=== PATIENT | male | born 1960 | race Caucasian/White ===

== ENCOUNTER 2018-05-11 10:53 | Emergency (ER) | payer MEDICARE, BC ==
[~2018-05-11] VITALS: Ht 172.7 cm; Wt 81.6 kg
--- NOTE | 2018-05-11 11:21 | PHYS DOC ---
Past History Past Medical History: Diabetes, High Cholesterol Past Surgical History: No Surgical History Additional Smoking Information: 1/2 PACK/DAY Alcohol Use: Occasionally Drug Use: None Adult General Chief Complaint Chief Complaint: DENTAL PROBLEM HPI HPI 58-year-old male presents with right lower dental pain and possible abscess. The patient was seen by his dentist and placed on clindamycin 150 mg 3 times a day, but definitive treatment of the infected tooth could not be scheduled until Sunday which is 3 days from now. 2 days ago, the patient developed a fever. He has been going to his PCP for 3 days to get IM Rocephin. He went today for his fourth visit and his provider was concerned about the swelling on the right side and the possibility of drainable abscess. The patient had a fever for 2 days despite the Rocephin and this was also concerning. The patient' s last measured fever was yesterday afternoon. He does not have a fever here. Patient tells me that the swelling seems to be decreasing at this time compared to yesterday. He also has less pain and sensitivity they came to the ED on the advice of his PCP. Review of Systems Review of Systems Constitutional: Denies fever or chills [] Eyes: Denies change in visual acuity, redness, or eye pain [] HENT: Denies nasal congestion or sore throat. Tooth pain, facial swelling.[] Respiratory: Denies cough or shortness of breath [] Cardiovascular: No additional information not addressed in HPI [] GI: Denies abdominal pain, nausea, vomiting, bloody stools or diarrhea [] : Denies dysuria or hematuria [] Musculoskeletal: Denies back pain or joint pain [] Integument: Denies rash or skin lesions [] Neurologic: Denies headache, focal weakness or sensory changes [] Endocrine: Denies polyuria or polydipsia [] All other systems were reviewed and found to be within normal limits, except as documented in this note. Allergies Allergies Allergies Coded Allergies Type Severity Reaction Last Updated Verified No Known Drug Allergies 05/11/18 No Physical Exam Physical Exam Constitutional: Well developed, well nourished, no acute distress, non-toxic appearance. [] HENT: Normocephalic, atraumatic, bilateral external ears normal. Cracked filling in tooth #31. No obvious drainable abscess in the gums.[] Eyes: PERRLA, EOMI, conjunctiva normal, no discharge. [] Neck: Normal range of motion, no tenderness, supple, no stridor. Prominent submandibular lymph nodes on the right [] Cardiovascular:Heart rate regular rhythm, no murmur [] Lungs & Thorax: Bilateral breath sounds clear to auscultation [] Abdomen: Bowel sounds normal, soft, no tenderness, no masses, no pulsatile masses. [] Skin: Warm, dry, no erythema, no rash. [] Back: No tenderness, no CVA tenderness. [] Extremities: No tenderness, no cyanosis, no clubbing, ROM intact, no edema. [] Neurologic: Alert and oriented X 3, normal motor function, normal sensory function, no focal deficits noted. [] Psychologic: Affect normal, judgement normal, mood normal. [] Current Patient Data Vital Signs Vital Signs Date Time Temp Pulse Resp B/P (MAP) Pulse Ox O2 Delivery O2 Flow Rate FiO2 05/11/18 10:55 98.2 88 20 98 Room Air EKG EKG [] Radiology/Procedures Radiology/Procedures [] Impressions: PQRS Compliance statement: One or more of the following individualized dose reduction techniques were utilized for this examination: 1. Automated exposure control. 2. Adjustment of the mA and/or kV according to patient size. 3. Use of iterative reconstruction technique. Indication:HEADACHE/FACIAL PAIN, RIGHT LOWER JAW X 5 DAYS TECHNIQUE: CT head without IV contrast COMPARISON:None FINDINGS: No pathologic extra-axial or intra-axial fluid collection. The ventricles and basal cisterns are within normal limits. No acute intracranial bleed. No focal loss of parikh-white differentiation. No scalp hematoma. Orbits are within normal limits. No suspicious calvarial lesion. The mastoid air cells are clear. IMPRESSION: No acute intracranial process. Indication:HEADACHE/FACIAL PAIN, RIGHT LOWER JAW X 5 DAYS TECHNIQUE: CT of the maxillofacial bones without IV contrast multiplanar reformats. COMPARISON: None FINDINGS: There is rightward deviation of the nasal septum. The bilateral zygoma and zygomatic arches are within normal limits. The paranasal sinuses and mastoid air cells are clear. The bilateral external auditory canals and inner ear cavities are within normal limits. The bilateral temporomandibular joints and mandible are within normal limits. Visualized upper cervical spine is within normal limits with facet arthropathy at C4-C5. The lenses, globes, extraocular muscles and intraorbital fat within normal limits. Right perimandibular inflammation and edema is noted with superficial right facial soft tissue swelling. No right perimandibular fluid collection seen. The visualized noncontrast appearance of the nasopharynx and oropharynx is within normal limits. IMPRESSION: 1. Right perimandibular and facial soft tissue cellulitis. No apparent fluid collection suggest abscess. Likely etiology right mandibular tooth infection. Electronically signed by: Gonzalo Adrian DO (05/11/2018 12:00 PM) [facility] DICTATED AND SIGNED BY: GONZALO ADRIAN DO DATE: 05/11/18 [id number] CC: SHANTI REYNOLDS DO Course & Med Decision Making Course & Med Decision Making Pertinent Labs and Imaging studies reviewed. (See chart for details) The patient is afebrile at this time. It is possible that the antibiotics are catching up with the infection. I will do a CT of the maxillofacial structures to evaluate for abscess. The CT scan does not show an abscess, though cellulitis is visualized. I believe the patient has turned the corner and this infection. I will increase his clindamycin dose to 300 mg 3 times a day and he will see his dentist in 3 days. If his fever returns he will come back to the emergency room to be admitted to the hospital for IV antibiotics. Is in agreement with this plan. He is stable for discharge at this time. I will give the patient 300 mg of clindamycin in the ED. [] Dragon Disclaimer Dragon Disclaimer This electronic medical record was generated, in whole or in part, using a voice recognition dictation system. Departure Departure: Impression: Primary Impression: Dental infection Disposition: HOME, SELF-CARE Condition: STABLE Patient Instructions: Dental Abscess SHANTI REYNOLDS DO May 11, 2018 11:21
[2018-05-11 11:36] LABS: BASO % 1 % (0-3); EOS # 0.1 x10^3/uL (0.0-0.7); EOS % 2 % (0-3); HEMATOCRIT 41.6 % (39.0-53.0); HEMOGLOBIN 14.4 g/dL (13.0-17.5); LYMPH # 1.7 x10^3/uL (1.0-4.8); LYMPH % 32 % (24-48); MEAN CORPUSCULAR HEMOGLOBIN 34 pg (25-35); MEAN CORPUSCULAR HGB CONC 35 g/dL (31-37); MEAN CORPUSCULAR VOLUME 99 fL (79-100); MONO # 0.5 x10^3/uL (0.0-1.1); MONO % 9 % (0-9); NEUT # 3.1 x10^3uL (1.8-7.7); NEUT % 57 % (31-73); PLATELET COUNT 179 x10^3/uL (140-400); RED BLOOD COUNT 4.22 x10^6/uL (4.30-5.70); RED CELL DISTRIBUTION WIDTH 14.5 % (11.5-14.5); WHITE BLOOD COUNT 5.4 x10^3/uL (4.0-11.0)
--- NOTE | 2018-05-11 12:03 | RAD ---
PQRS Compliance statement: One or more of the following individualized dose reduction techniques were utilized for this examination: 1. Automated exposure control. 2. Adjustment of the mA and/or kV according to patient size. 3. Use of iterative reconstruction technique. Indication:HEADACHE/FACIAL PAIN, RIGHT LOWER JAW X 5 DAYS TECHNIQUE: CT head without IV contrast COMPARISON:None FINDINGS: No pathologic extra-axial or intra-axial fluid collection. The ventricles and basal cisterns are within normal limits. No acute intracranial bleed. No focal loss of parikh-white differentiation. No scalp hematoma. Orbits are within normal limits. No suspicious calvarial lesion. The mastoid air cells are clear. IMPRESSION: No acute intracranial process. Indication:HEADACHE/FACIAL PAIN, RIGHT LOWER JAW X 5 DAYS TECHNIQUE: CT of the maxillofacial bones without IV contrast multiplanar reformats. COMPARISON: None FINDINGS: There is rightward deviation of the nasal septum. The bilateral zygoma and zygomatic arches are within normal limits. The paranasal sinuses and mastoid air cells are clear. The bilateral external auditory canals and inner ear cavities are within normal limits. The bilateral temporomandibular joints and mandible are within normal limits. Visualized upper cervical spine is within normal limits with facet arthropathy at C4-C5. The lenses, globes, extraocular muscles and intraorbital fat within normal limits. Right perimandibular inflammation and edema is noted with superficial right facial soft tissue swelling. No right perimandibular fluid collection seen. The visualized noncontrast appearance of the nasopharynx and oropharynx is within normal limits. IMPRESSION: 1. Right perimandibular and facial soft tissue cellulitis. No apparent fluid collection suggest abscess. Likely etiology right mandibular tooth infection. Electronically signed by: Gonzalo Sellers DO (05/11/2018 12:00 PM) [facility]
[2018-05-11 12:38] LABS: ALBUMIN 2.5 g/dL (3.4-5.0); ALBUMIN/GLOBULIN RATIO 0.5 (1.0-1.7); CALCIUM 8.7 mg/dL (8.5-10.1); CREATININE 1.1 mg/dL (0.7-1.3); POTASSIUM 4.2 mmol/L (3.5-5.1); TOTAL BILIRUBIN 0.3 mg/dL (0.2-1.0); TOTAL PROTEIN 7.5 g/dL (6.4-8.2)
[2018-05-11 12:40] VITALS: BP 128/85
[2018-05-11] MEDS ORDERED: CLINDAMYCIN HCL 150 MG CAPSULE PO ONE (12:45)
== END 2018-05-11 12:40 | disposition home or self-care (01) ==
LOC: ER 10:53
DX: K04.7 Periapical abscess without sinus (principal); R51 Headache; F17.200 Nicotine dependence, unspecified, uncomplicated; K12.2 Cellulitis and abscess of mouth; E11.9 Type 2 diabetes mellitus without complications; E78.00 Pure hypercholesterolemia, unspecified
CPT/HCPCS: 36415; 70450; 70486; 80053; 85025; 99284-25

== ENCOUNTER 2018-05-17 18:39 | Inpatient (IN) | payer MEDICARE, BC ==
[~2018-05-17] VITALS: Ht 172.7 cm; Wt 80.7 kg
[2018-05-17 19:05] VITALS: BP 135/80
[2018-05-17] MEDS ORDERED: PRAV40TA2 PO (19:33)
[2018-05-17] MEDS ORDERED: METF500T16 PO (19:33)
[2018-05-17] MEDS ORDERED: CEPH500C PO (19:33)
[2018-05-17] MEDS ORDERED: HYDR-2765 PO (19:33)
[2018-05-17 19:54] LABS: BASO # 0.1 x10^3/uL (0.0-0.2); BASO % 1 % (0-3); EOS # 0.1 x10^3/uL (0.0-0.7); EOS % 1 % (0-3); HEMATOCRIT 39.1 % (39.0-53.0); HEMOGLOBIN 13.9 g/dL (13.0-17.5); LYMPH % 21 % (24-48); MEAN CORPUSCULAR HEMOGLOBIN 35 pg (25-35); MEAN CORPUSCULAR HGB CONC 35 g/dL (31-37); MEAN CORPUSCULAR VOLUME 98 fL (79-100); MONO # 0.6 x10^3/uL (0.0-1.1); MONO % 7 % (0-9); NEUT # 6.7 x10^3uL (1.8-7.7); NEUT % 71 % (31-73); PLATELET COUNT 203 x10^3/uL (140-400); RED BLOOD COUNT 4.01 x10^6/uL (4.30-5.70); RED CELL DISTRIBUTION WIDTH 14.5 % (11.5-14.5); WHITE BLOOD COUNT 9.5 x10^3/uL (4.0-11.0)
[2018-05-17] MEDS ORDERED: VANCOMYCIN 2 GM in IV NORMAL SALINE 500ML 500 ML IV ONE (20:00)
[2018-05-17 20:09] LABS: CALCIUM 8.7 mg/dL (8.5-10.1); POTASSIUM 3.9 mmol/L (3.5-5.1)
[2018-05-17 20:59] LABS: SEDIMENTATION RATE 115 (0-15)
[2018-05-17] MEDS: PRAVASTATIN 20 MG TABLET. PO SCH (21:00)
[2018-05-17] MEDS: HYDROmorphone PF 2 MG/ML VIAL IV PRN (21:10)
[2018-05-17] MEDS: VANCOMYCIN PER PHARMACY MC PRN (21:40)
[2018-05-17 23:40] VITALS: BP 143/68
[2018-05-18] MEDS: HYDROmorphone PF 2 MG/ML VIAL IV PRN ×7 (06:26→23:38)
[2018-05-18 06:42] VITALS: BP 108/70
[2018-05-18] MEDS: LACTOBACILLUS RHAMNOSUS GG 1 CAPSULE. PO SCH ×2 (09:00→21:08)
[2018-05-18] MEDS: VANCOMYCIN 1.25 GM in IV NORMAL SALINE 250ML 250 ML IV SCH ×2 (09:45→21:12)
[2018-05-18 11:12] VITALS: BP 114/53
[2018-05-18] MEDS: CLINDAMYCIN 600MG PREMIX 50 ML IV SCH ×2 (14:20→22:23)
[2018-05-18] MEDS ORDERED: ONDANSETRON PF 4 MG/2 ML VIAL. IV PRN (15:00)
[2018-05-18 15:29] VITALS: BP 135/73
[2018-05-18 20:05] VITALS: BP 146/68
[2018-05-18] MEDS: PRAVASTATIN 20 MG TABLET. PO SCH (21:08)
[2018-05-18 22:10] VITALS: BP 120/77
[2018-05-18] MEDS: ACETAMINOPHEN 325 MG TABLET PO PRN (22:22)
--- NOTE | 2018-05-18 23:49 | PN ---
DATE: SUBJECTIVE: A 58-year-old male seen yesterday in the office and admitted. He has osteomyelitis of his right jaw, abscess formation, although he is markedly improved. Sed rate was 115. The patient's glucose slightly elevated at 116. The patient continues to make good progress. We will try to put a PICC line on him. OBJECTIVE: VITAL SIGNS: Did spike a temperature up to 100.1 with pulse of approximately 90. Blood pressure 135/73. GENERAL: The patient is alert and oriented. Swelling has gone down slightly to the right jaw area. NECK: Otherwise supple. LUNGS: Diminished, but clear. CARDIOVASCULAR: Regular sinus rhythm, S1, S2. ABDOMEN: Soft, nontender. ASSESSMENT AND PLAN: The patient is continued on IV antibiotic therapy. Outpatient MRI shows osteomyelitis of the right mandible and cellulitis and abscess formation as noted. NICKI DUQUE MD DR: BRANDIE/conor JOB#: [id number] / [id number]
[2018-05-19] MEDS: HYDROmorphone PF 2 MG/ML VIAL IV PRN ×9 (03:17→23:38)
[2018-05-19 05:36] VITALS: BP 156/77
[2018-05-19] MEDS: CLINDAMYCIN 600MG PREMIX 50 ML IV SCH (05:44)
--- NOTE | 2018-05-19 08:04 | RAD ---
Chest, PA and Lateral: Technique: PA and lateral views of the chest were obtained. History: Shortness of breath. Comparison: None. Findings: The heart and pulmonary vasculature appear within normal limits. Right-sided PICC line identified with the tip projecting at SVC/RA junction. Mild bibasilar lung airspace opacities likely atelectasis or infiltrates. Mild degenerative changes thoracic spine.. The pleural margins are clear. Impression: Mild bibasilar lung airspace opacities likely atelectasis or infiltrates.. Electronically signed by: Bladimir Rizo MD (05/19/2018 8:01 AM) [facility]
[2018-05-19] MEDS: LACTOBACILLUS RHAMNOSUS GG 1 CAPSULE. PO SCH ×2 (09:00→20:56)
[2018-05-19 09:08] LABS: VANC TR 7.7 mcg/mL (10.0-20.0)
[2018-05-19] MEDS: VANCOMYCIN 1.25 GM in IV NORMAL SALINE 250ML 250 ML IV SCH ×2 (09:19→17:03)
[2018-05-19] MEDS: VANCOMYCIN PER PHARMACY MC PRN (10:06)
[2018-05-19 10:53] VITALS: BP 149/77
[2018-05-19 12:13] LABS: BASO % 1 % (0-3); EOS % 0 % (0-3); HEMATOCRIT 33.3 % (39.0-53.0); HEMOGLOBIN 11.4 g/dL (13.0-17.5); LYMPH # 1.3 x10^3/uL (1.0-4.8); LYMPH % 18 % (24-48); MEAN CORPUSCULAR HEMOGLOBIN 34 pg (25-35); MEAN CORPUSCULAR HGB CONC 34 g/dL (31-37); MEAN CORPUSCULAR VOLUME 98 fL (79-100); MONO # 0.4 x10^3/uL (0.0-1.1); MONO % 6 % (0-9); NEUT # 5.7 x10^3uL (1.8-7.7); NEUT % 76 % (31-73); PLATELET COUNT 156 x10^3/uL (140-400); RED BLOOD COUNT 3.39 x10^6/uL (4.30-5.70); RED CELL DISTRIBUTION WIDTH 14.3 % (11.5-14.5); WHITE BLOOD COUNT 7.5 x10^3/uL (4.0-11.0)
[2018-05-19 12:24] LABS: CALCIUM 8.1 mg/dL (8.5-10.1); POTASSIUM 4.3 mmol/L (3.5-5.1)
[2018-05-19] MEDS ORDERED: IOHEXOL 300 MG/ML 75 ML VIAL. IV ONE (12:30)
[2018-05-19] MEDS ORDERED: CONTRAST GIVEN MC PRN (12:30)
[2018-05-19] MEDS: PIPERACILLIN/TAZOBACTAM 4.5 GM in IV NORMAL SALINE 50ML 50 ML IV SCH ×3 (13:25→23:41)
[2018-05-19 15:57] VITALS: BP 139/68
--- NOTE | 2018-05-19 16:18 | RAD ---
Examination: CT head without contrast and CT maxillofacial bones with IV contrast HISTORY: History of right-sided facial, jaw swelling, fever, chills COMPARISON: 05/11/2018 TECHNIQUE: Axial CT images of the head was performed without contrast. Axial CT images of the maxillofacial bones were performed with IV contrast. Exposure: One or more of the following individualized dose reduction techniques were utilized for this examination: 1. Automated exposure control 2. Adjustment of the mA and/or kV according to patient size 3. Use of iterative reconstruction technique FINDINGS: There is no evidence of midline shift. There is no acute intracranial bleed or extra-axial fluid collection identified. The parikh-white matter differentiation is maintained. The visualized lateral ventricles, third ventricle, fourth ventricle appropriate for age. The basal cisterns are uneffaced. There is a peripherally enhancing 4.9 x 4.0 x 2.3 cm fluid collection identified about the right mandible (superficial and deep to the right mandible) with surrounding inflammatory fat stranding and soft tissue swelling likely abscess, best visualized on series 6 image #10. No evidence of cortical disruption identified. There are periapical lucencies identified in the mandibular teeth region likely dental disease. The visualized vallecula, piriform sinuses grossly appears unremarkable. IMPRESSION: 1. Peripherally enhancing 4.9 x 4.0 x 2.3 cm fluid collection identified about the right mandible (superficial and deep to the right mandible into the floor of the mouth ) with surrounding inflammatory fat stranding and soft tissue swelling likely abscess, best visualized on series 6 image #10. There is surrounding inflammatory fat stranding about the mandible in the soft tissue in the subcutaneous region likely soft tissue infection. 2. No acute intracranial findings. Electronically signed by: Bladimir Rizo MD (05/19/2018 4:15 PM) [facility]
[2018-05-19 19:37] VITALS: BP 154/78
[2018-05-19] MEDS: PRAVASTATIN 20 MG TABLET. PO SCH (20:56)
[2018-05-19] MEDS: ACETAMINOPHEN 325 MG TABLET PO PRN (21:10)
[2018-05-19 23:26] VITALS: BP 129/69
--- NOTE | 2018-05-19 23:28 | PN ---
DATE: SUBJECTIVE: A 58-year-old male. He is in with severe cellulitis and osteomyelitis of his right jaw. The patient has been doing reasonably well. He still spiked a temperature of 100.7, switched him over to Zosyn and vancomycin and make further evaluation there. He is in quite a bit of pain. He is still receiving IV hydromorphone every 2 hours or so for pain. We asked oral surgeon to come in and take a look at him. Otherwise, we will get a repeat CT scan of his face to make sure the ____ has not progressed as there does appear to be more swelling than previous. OBJECTIVE: VITAL SIGNS: Blood pressure 149/77, respiration 18, pulse 86, temperature 100.7, and oxygen saturation is good. EXTREMITIES: The patient has marked swelling along the right side of his face extending up into the pretemporal area, but not around the eye itself. He is able to eat somewhat on a soft diet, but other than that seems to be having some difficulty with the pain of this abscess. We will continue with IV antibiotic therapy including vancomycin and Zosyn and make further evaluation along with Oral Surgery to see if there is anything that needs to be acutely drained or taking care on this young man. IMPRESSION: Osteomyelitis of the right jaw, abscess of the face secondary to a tooth abscess, systemic inflammatory response syndrome. PLAN: As above. NICKI DUQUE MD DR: BRANDIE/conor JOB#: [id number] / [id number]
[2018-05-20] MEDS: VANCOMYCIN 1.25 GM in IV NORMAL SALINE 250ML 250 ML IV SCH ×2 (01:17→10:51)
[2018-05-20] MEDS: HYDROmorphone PF 2 MG/ML VIAL IV PRN ×5 (01:41→12:44)
[2018-05-20] MEDS: PIPERACILLIN/TAZOBACTAM 4.5 GM in IV NORMAL SALINE 50ML 50 ML IV SCH ×2 (05:52→12:44)
[2018-05-20 06:02] VITALS: BP 129/66
[2018-05-20] MEDS: ACETAMINOPHEN 325 MG TABLET PO PRN (06:07)
[2018-05-20] MEDS: LACTOBACILLUS RHAMNOSUS GG 1 CAPSULE. PO SCH (08:29)
[2018-05-20 09:19] LABS: BASO % 1 % (0-3); EOS % 0 % (0-3); HEMATOCRIT 32.1 % (39.0-53.0); HEMOGLOBIN 11.2 g/dL (13.0-17.5); LYMPH # 1.1 x10^3/uL (1.0-4.8); LYMPH % 13 % (24-48); MEAN CORPUSCULAR HEMOGLOBIN 34 pg (25-35); MEAN CORPUSCULAR HGB CONC 35 g/dL (31-37); MEAN CORPUSCULAR VOLUME 97 fL (79-100); MONO # 0.5 x10^3/uL (0.0-1.1); MONO % 7 % (0-9); NEUT # 6.7 x10^3uL (1.8-7.7); NEUT % 80 % (31-73); PLATELET COUNT 149 x10^3/uL (140-400); RED CELL DISTRIBUTION WIDTH 14.5 % (11.5-14.5); WHITE BLOOD COUNT 8.4 x10^3/uL (4.0-11.0)
[2018-05-20] MEDS: VANCOMYCIN PER PHARMACY MC PRN (10:06)
[2018-05-20 10:47] VITALS: BP 122/63
--- NOTE | 2018-05-20 13:44 | PDOC2 ---
CONSULT Date of Admission DATE: 05/17/18 TIME: 17:00 Reason for Consult: Odontogenic Abscess right face associated with nonvital tooth #30 Referring Physician: David Chief Complaint Right face and neck abscess Pt reports acute pain with right molar #30, and root canal treatment with continued swelling and pain Source: Chart review, Patient Problem List Odontogenic abscess Right neck, Submandibular space, microbiology supervisor space, right floor of mouth Non vital tooth #30 History of Present Illness 58 yom reports that 1-2 weeks ago he had acute dental pain, sought help with the [facility], he was treated with PO ABX and a root canal on #30. He reports that the swelling increased and that he then sought help from his PCP , Dr. Hernandez who administered IM ABX and admitted him at [facility] for IV ABX. OMS was consulted for evaluation and management of odontogenic abscess Cardiovascular: CAD Pulmonary: No pertinent hx GI: No pertinent hx Heme/Onc: No pertinent hx Hepatobiliary: No pertinent hx Psych: No pertinent hx Musculoskeletal: Other (neck pain managed with Narcotics) Rheumatologic: No pertinent hx Infectious disease: No pertinent hx ENT: Other (hx of neck pain) Renal/: No pertinent hx Endocrine: No pertinent hx Dermatology: No pertinent hx Past Surgical History: No pertinent history Family History: Coronary Artery Disease, Diabetes Smoke: No ALCOHOL: occassional Drugs: None Lives: with Family Domestic Violence: Neg Current Medications Current Medications Vancomycin HCl (Vanco Per Pharmacy) 1 each PRN DAILY PRN MC SEE COMMENTS Last administered on 05/20/18at 10:06; Start 05/17/18 at 19:45 Hydromorphone HCl (Dilaudid) 2 mg PRN Q2HR PRN IV PAIN Last administered on 05/20at 12:44; Start 05/17/18 at 19:45 Vancomycin HCl 2 gm/Sodium Chloride 500 ml @ 250 mls/hr 1X ONCE IV Last administered on 05/17/18at 21:10; Start 05/17/18 at 20:00; Stop 05/17/18 at 21:59; Status DC Pravastatin Sodium (Pravachol) 40 mg QHS PO Last administered on 05/19/18at 20:56 ; Start 05/17/18 at 21:00 Vancomycin HCl 1.25 gm/Sodium Chloride 250 ml @ 167 mls/hr Q12H IV Last administered on 05/19/18 09:19; Start 05/18/18 at 09:00; Stop 05/19/18 at 11:01; Status DC Vancomycin HCl (Vancomycin Trough Level) 1 each 1X ONCE MC Last administered on 05/19/18 08:30; Start 05/19/18 at 08:30; Stop 05/19/18 at 08:31; Status DC Lactobacillus Rhamnosus (Culturelle) 1 cap BID PO Last administered on 08:29; Start 05/18/18 at 09:00 Clindamycin Phosphate 50 ml @ 100 mls/hr Q8HRS IV Last administered on 05:44; Start 05/18/18 at 14:00; Stop 05/19/18 at 11:39; Status DC Ondansetron HCl (Zofran) 4 mg PRN Q6HRS PRN IV NAUSEA/VOMITING Last administered on 05/18/18 15:07; Start 05/18/18 at 15:00 Acetaminophen (Tylenol) 650 mg PRN Q6HRS PRN PO PAIN / TEMP Last administered on 05/20/18 06:07; Start 05/18/18 at 21:45 Vancomycin HCl 1.25 gm/Sodium Chloride 250 ml @ 167 mls/hr Q8H IV Last administered on 05/20/18 10:51; Start 05/19/18 at 17:00 Vancomycin HCl (Vancomycin Trough Level) 1 each 1X ONCE MC Last administered on 05/20/18 08:30; Start 05/20/18 at 08:30; Stop 05/20/18 at 08:31; Status DC Piperacillin Sod/ Tazobactam Sod 4.5 gm/Sodium Chloride 50 ml @ 100 mls/hr Q6HRS IV Last administered on 05/20/18 12:44; Start 05/19/18 at 12:00 Iohexol (Omnipaque 300 Mg/ml) 75 ml 1X ONCE IV Last administered on 05/19/18 12:30; Start 05/19/18 at 12:30; Stop 05/19/18 at 12:31; Status DC Info (Do NOT chart on this entry -- for MONITORING) 1 each PRN DAILY PRN MC SEE COMMENTS; Start 05/19/18 at 12:30; Stop 05/21/18 at 12:29 Vancomycin HCl (Vancomycin Trough Level) 1 each 1X ONCE MC ; Start 05/23/18 at 08:30; Stop 05/23/18 at 08:31 Active Scripts Active Reported Pravastatin Sodium 40 Mg Tablet 40 Mg PO HS Hydrocodone-Apap 7.5-325 (Hydrocodone Bit/Acetaminophen) 1 Each Tablet 1-2 Tab PO PRN Q6HRS PRN Metformin Hcl 500 Mg Tablet 500 Mg PO BID Cephalexin 500 Mg Capsule 500 Mg PO QID Allergies: Coded Allergies: No Known Drug Allergies (Unverified , 05/11/18) General: Alert, Oriented X3, Cooperative, No acute distress HEENT: Atraumatic, PERRLA, EOMI, Mucous membr. moist/pink (FROM tongue, uvula at midline, #30 has RCT access, slight inflammation on right floor of mouth,), Other (right facial edema extending below the inferior mandibular border, but not past midline. Indurated 8x8cm, into vestibule.) Lungs: Clear to auscultation Heart: Regular rate Abdomen: Normal bowel sounds, Soft Extremities: No clubbing, No cyanosis Skin: No rashes Neuro: Normal speech, Strength at 5/5 X4 ext, Normal tone, Sensation intact, Cranial nerves 3-12 NL VITALS Vital Signs Date Time Temp Pulse Resp B/P (MAP) Pulse Ox O2 Delivery O2 Flow Rate FiO2 05/20/18 12:44 95 Room Air 05/20/18 10:47 99.4 77 20 122/63 (82) Labs Laboratory Tests Test 05/19/18 08:03 05/19/18 08:41 05/19/18 12:04 05/20/18 09:05 Glucose (Fingerstick) 86 mg/dL (70-99) Vancomycin Level Trough 7.7 mcg/mL (10.0-20.0) 13.0 mcg/mL (10.0-20.0) Vancomycin Last Dose Date 05/18/2018 05/20/2018 Vancomycin Last Dose Time 2100 0100 White Blood Count 7.5 x10^3/uL (4.0-11.0) 8.4 x10^3/uL (4.0-11.0) Red Blood Count 3.39 x10^6/uL (4.30-5.70) 3.30 x10^6/uL (4.30-5.70) Hemoglobin 11.4 g/dL (13.0-17.5) 11.2 g/dL (13.0-17.5) Hematocrit 33.3 % (39.0-53.0) 32.1 % (39.0-53.0) Mean Corpuscular Volume 98 fL (79-100) 97 fL (79-100) Mean Corpuscular Hemoglobin 34 pg (25-35) 34 pg (25-35) Mean Corpuscular Hemoglobin Concent 34 g/dL (31-37) 35 g/dL (31-37) Red Cell Distribution Width 14.3 % (11.5-14.5) 14.5 % (11.5-14.5) Platelet Count 156 x10^3/uL (140-400) 149 x10^3/uL (140-400) Neutrophils (%) (Auto) 76 % (31-73) 80 % (31-73) Lymphocytes (%) (Auto) 18 % (24-48) 13 % (24-48) Monocytes (%) (Auto) 6 % (0-9) 7 % (0-9) Eosinophils (%) (Auto) 0 % (0-3) 0 % (0-3) Basophils (%) (Auto) 1 % (0-3) 1 % (0-3) Neutrophils # (Auto) 5.7 x10^3uL (1.8-7.7) 6.7 x10^3uL (1.8-7.7) Lymphocytes # (Auto) 1.3 x10^3/uL (1.0-4.8) 1.1 x10^3/uL (1.0-4.8) Monocytes # (Auto) 0.4 x10^3/uL (0.0-1.1) 0.5 x10^3/uL (0.0-1.1) Eosinophils # (Auto) 0.0 x10^3/uL (0.0-0.7) 0.0 x10^3/uL (0.0-0.7) Basophils # (Auto) 0.0 x10^3/uL (0.0-0.2) 0.0 x10^3/uL (0.0-0.2) Sodium Level 131 mmol/L (136-145) Potassium Level 4.3 mmol/L (3.5-5.1) Chloride Level 97 mmol/L (98-107) Carbon Dioxide Level 30 mmol/L (21-32) Anion Gap 4 (6-14) Blood Urea Nitrogen 15 mg/dL (8-26) Creatinine 1.0 mg/dL (0.7-1.3) Estimated GFR (Cockcroft-Gault) 77.0 Glucose Level 130 mg/dL (70-99) Lactic Acid Level 0.7 mmol/L (0.4-2.0) Calcium Level 8.1 mg/dL (8.5-10.1) Images right neck fluid collection [id number] Periapical radiolucencies at the apicies of #30 Assessment/Plan 58 yom with right facial Odontogenic abscess Right neck, Submandibular space, microbiology supervisor space, right floor of mouth Non vital tooth #30 Plan: Continue IV ABX through discharge, please continue Zosyn. OK to D/C Vanc and switch to Flagyl 500mg TID Request transfer from Dr. Hernandez to [facility] to access OR for I&D Plan OR Surgical percutaneous drainage, placement of neck drains and extraction of #30 and biopsy bone and culture purulence on 05.21.18, plan approximately 16:30 Will follow Please call with questions CARD,CHANNING Ortiz DMD May 20, 2018 13:44
[2018-05-20 14:57] VITALS: BP 146/67
--- NOTE | 2018-05-20 15:24 | PN ---
DATE: SUBJECTIVE: The patient has a large abscess. 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 We have consulted an oral surgeon, Dr. Russo to come up and probably drain this abscess. He has been on Zosyn and vancomycin. OBJECTIVE: VITAL SIGNS: His temperature is up to 101.8, pulse of 88, otherwise blood pressure 130/60, afebrile, sat 94%. EXTREMITIES: The patient is fair amount of pain, using Dilaudid IV for pain relief. LABORATORY DATA: Blood cultures have been negative so far. Otherwise, the patient has amount of pain. The swelling to the right side of the face has increased. His CAT scan of that area demonstrates swelling, 4.9 fluid collection in the right mandible with surrounding inflammatory fat stranding about the mandible and soft tissue of the subcutaneous region likely soft tissue infection. We will continue on IV antibiotic therapy, get Dr. Russo to drain that abscesses as soon as possible and make further evaluation. IMPRESSION: Sukhwinder's angina, osteomyelitis of the right mandible, dental decay, sepsis. PLAN: As above. Continue with IV antibiotic therapy and surgical intervention. NICKI DUQUE MD DR: BRANDIE/conor JOB#: [id number] / [id number]
--- NOTE | 2018-05-24 12:34 | DS ---
DATE OF DISCHARGE: 05/20/2018 HOSPITAL COURSE: A 58-year-old male who has been battling an abscess and infection to his right mandible and has been on oral antibiotics from his dentist. However, the patient became increasingly worse with the swelling, increasingly more pronounced, came in the hospital. Sed rate was 115. As a result of this, the patient was admitted to the hospital for further evaluation. He also was noted to have a temperature as high as 102.9 with heart rate over 100; therefore, it is technically septic. An MRI demonstrated he had osteomyelitis to his right jaw area. He had been placed on Zosyn and vancomycin. The patient was seen by noted oral maxillary surgeon Dr. Russo and made timely suggestions. He was being transferred down to [place] for IV antibiotic therapy. The patient's pain was so significant he had received IV Dilaudid approximately every 2 hours because of the pain in that jaw. Vancomycin levels were monitored. The patient showed slight anemia of 11.2. The patient otherwise made good progress. Blood sugars were slightly elevated about 130. The patient otherwise was stabilized and then he was transferred down to the [facility] per Dr. Russo to have surgery the following day to have it drained. He was transferred to Dr. Chirinos's service for ____ and continue IV antibiotic therapy there. IMPRESSION: Therefore, osteomyelitis of the right jaw, abscess of the right maxillofacial area, tooth decay, hyperglycemia. PLAN: The patient will be transferred down to EMS for care of Dr. Chirinos and Dr. Russo for consult. NICKI DUQUE MD DR: BRANDIE/conor JOB#: [id number] / [id number]
== END 2018-05-20 15:55 | disposition short-term general hospital (02) | DRG 872 ==
LOC: 1 SOUTH 18:43
PROVIDERS: ADMIT Family Medicine; ATTEND Family Medicine
PROC: 02HV33Z Insertion of Infusion Device into Superior Vena Cava, Percutaneous Approach (ICD-10-PCS; principal; 2018-05-18)
PROC: B548ZZA Ultrasonography of Superior Vena Cava, Guidance (ICD-10-PCS; 2018-05-18)
DX: A41.9 Sepsis, unspecified organism (principal); L02.01 Cutaneous abscess of face; K12.2 Cellulitis and abscess of mouth; L02.11 Cutaneous abscess of neck; M86.8X8 Other osteomyelitis, other site; R65.10 Systemic inflammatory response syndrome (SIRS) of non-infectious origin without acute organ dysfunction; M27.2 Inflammatory conditions of jaws; K02.9 Dental caries, unspecified; I25.10 Atherosclerotic heart disease of native coronary artery without angina pectoris; K04.7 Periapical abscess without sinus; Z82.49 Family history of ischemic heart disease and other diseases of the circulatory system; Z79.899 Other long term (current) drug therapy; Z83.3 Family history of diabetes mellitus; R73.9 Hyperglycemia, unspecified
CPT/HCPCS: 36415; 36569; 70460; 70487; 71046; 80048; 80202; 82947; 83605; 85007; 85025; 85651; 87040; 99406; J1170; J2405; J2543; J3370; J3490; J7040; J7050; Q9967

== ENCOUNTER → 2018-08-05 | Outpatient (CLI) | payer MEDICARE, BC ==
[2018-07-11 10:55] VITALS: BP 123/74
[~2018-08-05] MED LIST: CEPH500C PO; HYDR-2765 PO; METF500T16 PO; PRAV40TA2 PO
[2018-08-05 10:05] LABS: BASO # 0.1 x10^3/uL (0.0-0.2); BASO % 1 % (0-3); EOS # 0.1 x10^3/uL (0.0-0.7); EOS % 2 % (0-3); HEMATOCRIT 43.3 % (39.0-53.0); LYMPH # 2.5 x10^3/uL (1.0-4.8); LYMPH % 39 % (24-48); MEAN CORPUSCULAR HEMOGLOBIN 34 pg (25-35); MEAN CORPUSCULAR HGB CONC 35 g/dL (31-37); MEAN CORPUSCULAR VOLUME 98 fL (79-100); MONO # 0.3 x10^3/uL (0.0-1.1); MONO % 5 % (0-9); NEUT # 3.3 x10^3uL (1.8-7.7); NEUT % 53 % (31-73); PLATELET COUNT 194 x10^3/uL (140-400); RED BLOOD COUNT 4.43 x10^6/uL (4.30-5.70); RED CELL DISTRIBUTION WIDTH 16.6 % (11.5-14.5); WHITE BLOOD COUNT 6.3 x10^3/uL (4.0-11.0)
[2018-08-05 10:09] LABS: ALBUMIN 2.7 g/dL (3.4-5.0); ALBUMIN/GLOBULIN RATIO 0.6 (1.0-1.7); CALCIUM 9.2 mg/dL (8.5-10.1); CREATININE 1.1 mg/dL (0.7-1.3); TOTAL BILIRUBIN 0.3 mg/dL (0.2-1.0); TOTAL PROTEIN 7.6 g/dL (6.4-8.2)
[2018-08-05 11:11] LABS: SEDIMENTATION RATE 75 (0-15)
== END | disposition home or self-care (01) ==
LOC: LAB 09:34
PROVIDERS: ATTEND Family Medicine
DX: K12.2 Cellulitis and abscess of mouth (principal)
CPT/HCPCS: 36415; 80053; 85025; 85651

== ENCOUNTER → 2018-09-02 | Outpatient (CLI) | payer MEDICARE, BC ==
[2018-07-11 10:55] VITALS: BP 123/74
[2018-09-02 09:16] LABS: BASO % 1 % (0-3); EOS # 0.1 x10^3/uL (0.0-0.7); EOS % 3 % (0-3); HEMATOCRIT 42.6 % (39.0-53.0); HEMOGLOBIN 14.6 g/dL (13.0-17.5); LYMPH # 2.2 x10^3/uL (1.0-4.8); LYMPH % 39 % (24-48); MEAN CORPUSCULAR HEMOGLOBIN 33 pg (25-35); MEAN CORPUSCULAR HGB CONC 34 g/dL (31-37); MEAN CORPUSCULAR VOLUME 98 fL (79-100); MONO # 0.3 x10^3/uL (0.0-1.1); MONO % 6 % (0-9); NEUT # 2.9 x10^3uL (1.8-7.7); NEUT % 52 % (31-73); PLATELET COUNT 162 x10^3/uL (140-400); RED BLOOD COUNT 4.37 x10^6/uL (4.30-5.70); RED CELL DISTRIBUTION WIDTH 15.5 % (11.5-14.5); WHITE BLOOD COUNT 5.6 x10^3/uL (4.0-11.0)
[2018-09-02 10:20] LABS: SEDIMENTATION RATE 76 (0-15)
== END | disposition home or self-care (01) ==
LOC: LAB 08:44
PROVIDERS: ATTEND Family Medicine
DX: M27.2 Inflammatory conditions of jaws (principal)
CPT/HCPCS: 36415; 85025; 85651

== ENCOUNTER 2021-02-08 13:05 | Emergency (ER) | payer MEDICARE, BC ==
[~2021-02-08] VITALS: Ht 172.7 cm; Wt 84.7 kg
[2021-02-08] MEDS ORDERED: ASPIRIN 325 MG TABLET PO ONE (13:15)
[2021-02-08] MEDS ORDERED: IV NORMAL SALINE 1,000ML 1,000 ML IV ONE (13:15)
--- NOTE | 2021-02-08 13:23 | EKG ---
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
[2021-02-08] MEDS ORDERED: IOHEXOL 350 MG/ML 100 ML VIAL. ONE (13:25)
[2021-02-08] MEDS ORDERED: CONTRAST GIVEN. MC PRN (13:30)
[2021-02-08] MEDS ORDERED: IOHEXOL 350 MG/ML 100 ML VIAL. IV ONE (13:30)
--- NOTE | 2021-02-08 13:31 | PHYS DOC ---
Past History Past Medical History: Arthritis, Diabetes, High Cholesterol Past Surgical History: No Surgical History, Tonsillectomy Additional Past Surgical Histo: Left jaw surgery, bilateral knees Smoking: Cigarettes Alcohol Use: Occasionally Drug Use: None General Adult EDM: Chief Complaint: CHEST PAIN HPI: HPI: 60-year-old male presents with report of chest pain that started last night at approximately 0300. Patient reports the pain lasted approximately 2 hours. Patient reports radiation into his left jaw and down his left shoulder. Patient reports has had some issues with his neck and left arm in the past for which she is followed with his PCP. PCP concerned that patient may have a pinched nerve. Patient reports today's pain was significantly different than his prior chronic pain. Patient reports sensation was as if he had "hit his funny bone ". Patient reports some shortness of breath associated with it. Denies any trauma. Denies fever or chills. Patient reports this morning pain returned and has been constant. Patient denies any leg swelling or calf tenderness. Patient does have cardiac risk factors including high cholesterol, smoker, and diabetes. Review of Systems: Review of Systems: Constitutional: Denies fever or chills Eyes: Denies redness or eye pain HENT: Denies nasal congestion or sore throat Respiratory: Denies cough; reports shortness of breath Cardiovascular: Reports chest pain; denies palpitations GI: Denies abdominal pain, nausea, or vomiting : Denies dysuria or hematuria Musculoskeletal: Denies back pain; reports left neck pain and left arm pain Integument: Denies rash or skin lesions Neurologic: Denies headache, focal weakness or sensory changes Complete systems were reviewed and found to be within normal limits, except as documented in this note. Current Medications: Current Meds: Current Medications Medications (Trade) Dose Ordered Sig/Vicki Start Time Stop Time Status Last Admin Dose Admin Aspirin (Raghav Aspirin) 325 mg 1X ONCE 02/08/21 13:15 02/08/21 13:23 DC Fentanyl Citrate (Fentanyl 2ml Vial) 50 mcg 1X ONCE 02/08/21 13:15 02/08/21 13:23 DC Info (Do NOT chart on this entry -- for MONITORING) 1 each PRN DAILY PRN 02/08/21 13:30 02/10/21 13:29 Iohexol (Omnipaque 350 Mg/ml) 100 ml STK-MED ONCE 02/08/21 13:25 02/08/21 13:25 DC Sodium Chloride 1,000 ml @ 1,000 mls/hr 1X ONCE 02/08/21 13:15 02/08/21 14:14 Allergies: Allergies: Allergies Coded Allergies Type Severity Reaction Last Updated Verified No Known Drug Allergies 02/08/21 No Physical Exam: PE: Constitutional: Well developed, well nourished, uncomfortable, non-toxic appearance HENT: Normocephalic, atraumatic Eyes: Conjunctiva normal, no discharge Neck: Normal range of motion, supple Lungs & Thorax: No respiratory distress, equal chest rise and fall, clear to auscultation bilaterally, anterior chest wall nontender Cardiovascular: Regular rate and rhythm, normal heart sounds Abdomen: Soft, no tenderness Skin: Warm, dry, no erythema, no rash Extremities: No tenderness, ROM intact, no edema Neurologic: Alert and oriented X 3, normal motor function, normal sensory function, no focal deficits noted Psychologic: Affect normal, judgment normal EKG: EKG: @1313 NSR at 77bpm, NO ST elevation, ST depression noted to V2-V4, QRS 96ms, QT/QTc 378/430ms @1352 NSR at 71bpm, NO ST elevation, ST depression improved in V2-V4, QRS 98ms, QT/QTc 384/422ms @1355 NSR at 73bpm, NO ST elevaiton, ST depression returned similar to prior EKG at 1313 to V2-V4, QRS 96ms, QT/QTc 386/429ms Radiology/Procedures: Radiology/Procedures: PROCEDURE: CT ANGIOGRAPHY CHEST CT angiography of the chest 02/08/2021 1:30 PM Indication: Chest pain Technique: Multiple contiguous axial images were obtained through the chest after administration of intravenous iodinated contrast. Coronal, sagittal, and 3-D MIP reformations were created. Comparison: Chest radiograph, May 19, 2018 Findings: There is no filling defect within central pulmonary arteries or evidence of acute pulmonary embolism. The heart is normal in size. No pericardial effusion is identified. Multifocal mediastinal and bilateral hilar adenopathy is present. Mediastinal lymph nodes are prominent in number, but are not individually enlarged by size criterion. Largest node is noted in the right hilum is a short axis diameter of 1.7 cm and is therefore pathologically enlarged. Other nodes in the right hilum and other proximal intrapulmonary lymph nodes are mildly prominent, but smaller in size. There is no pneumothorax, or pleural effusion. Multifocal intralobular septal thickening is seen. Pleural reticular pattern is noted particularly in the lung bases. Mild subpleural cystic changes seen without honeycombing. There is a 6 mm noncalcified nodule in the left lower lobe (axial image 98). Limited visuali zation of the upper abdomen demonstrates no acute abnormality. No acute osseous abnormalities are identified. IMPRESSION: 1. No evidence of acute acute pulmonary embolism 2. Mediastinal and bilateral hilar adenopathy, nonspecific. Recommend 3 month follow-up CT chest with contrast. 3. Multifocal intralobular septal thickening with subpleural reticular opacities more prominent in the lower lobes. Differential considerations include pulmonary edema, or early UIP. 4. 6 mm noncalcified nodule, left lower lobe. Attention on follow-up exam recommended. CT DOSING PQRS STATEMENT: One or more of the following individualized dose reduction techniques were utilized for this examination: 1. Automated exposure control 2. Adjustment of the mA and/or kV according to patient size 3. Use of iterative reconstruction technique Electronically signed by: Gautam Giang MD (02/08/2021 2:05 PM) [id number] Heart Score: C/O Chest Pain: Yes HEART Score for Chest Pain: HEART Score for Chest Pain Response (Comments) Value History Moderately Suspicious [address] Depression 2 Age >45 - < 65 1 Risk Factors >3 Risk Factors or Hx CAD 2 Troponin >3 x Normal Limit 2 Total 8 Risk Factors: Risk Factors: DM, Current or recent (<one month) smoker, HTN, HLP, family history of CAD, obesity. Risk Scores: Score 0 - 3: 2.5% MACE over next 6 weeks - Discharge Home Score 4 - 6: 20.3% MACE over next 6 weeks - Admit for Clinical Observation Score 7 - 10: 72.7% MACE over next 6 weeks - Early Invasive Strategies Course & Med Decision Making: Course & Med Decision Making Pertinent Labs and Imaging studies reviewed. (See chart for details) Patient with significant cardiac risk factors presents with chest pain with pain to his jaw and left arm. Patient does have some chronic neck and arm pain but reports today's pain was significantly different. Aspirin given. Pain addressed. EKG obtained with findings of depressed ST segments concerning for ischemic changes. Labs obtained and posted to chart. Troponin significantly elevated. Heparin bolus and drip initiated. CTA chest also obtained without findings of PE. Incidental pulmonary nodule noted. Patient does report history of pulmonary nodule that he and his PCP are aware of. A copy of CT results were given to patient. Patient requiring transfer to higher level facility with Manager [facility] capability. Discussed findings with patient's PCP Dr. Duque, who is in agreement with need for transfer. Discussed with Dr. Chirinos (hospitalist at [facility]) who is in agreement with transfer for admission. Discussed findings and plan with patient and family, who acknowledge understanding and agreement. Dragon Disclaimer: Dragon Disclaimer: This electronic medical record was generated, in whole or in part, using a voice recognition dictation system. Departure Departure: Impression: Primary Impression: NSTEMI (non-ST elevated myocardial infarction) Disposition: 02 SHORT TERM HOSPITAL ([facility]- Dr. Chirinos (hospitalist) accepting) Condition: GUARDED Referrals: NICKI DUQUE MD (PCP) Critical Care Time Critical care time was 30 minutes which includes time at bedside, spent in discussion of patient's care with specialists and/or family members, with interpretation of laboratory and/or radiological studies and is exclusive of procedures. MALLORIE VALERIO DO Feb 08, 2021 13:31
[2021-02-08 14:00] LABS: BASO % 1 % (0-3); EOS # 0.1 x10^3/uL (0.0-0.7); EOS % 2 % (0-3); HEMATOCRIT 40.3 % (39.0-53.0); LYMPH # 2.4 x10^3/uL (1.0-4.8); LYMPH % 36 % (24-48); MEAN CORPUSCULAR HEMOGLOBIN 36 pg (25-35); MEAN CORPUSCULAR HGB CONC 35 g/dL (31-37); MEAN CORPUSCULAR VOLUME 102 fL (79-100); MONO # 0.4 x10^3/uL (0.0-1.1); MONO % 5 % (0-9); NEUT # 3.6 x10^3uL (1.8-7.7); NEUT % 56 % (31-73); PLATELET COUNT 147 x10^3/uL (140-400); RED BLOOD COUNT 3.94 x10^6/uL (4.30-5.70); RED CELL DISTRIBUTION WIDTH 14.2 % (11.5-14.5); WHITE BLOOD COUNT 6.5 x10^3/uL (4.0-11.0)
--- NOTE | 2021-02-08 14:05 | EKG ---
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
--- NOTE | 2021-02-08 14:07 | RAD ---
CT angiography of the chest 02/08/2021 1:30 PM Indication: Chest pain Technique: Multiple contiguous axial images were obtained through the chest after administration of i ntravenous iodinated contrast. Coronal, sagittal, and 3-D MIP reformations were created. Comparison: Chest radiograph, May 19, 2018 Findings: There is no filling defect within central pulmonary arteries or evidence of acute pulmonary embolism. The heart is normal in size. No pericardial effusion is identified. Multifocal mediastinal and bilate ral hilar adenopathy is present. Mediastinal lymph nodes are prominent in number, but are not individ ually enlarged by size criterion. Largest node is noted in the right hilum is a short axis diameter o f 1.7 cm and is therefore pathologically enlarged. Other nodes in the right hilum and other proximal intrapulmonary lymph nodes are mildly prominent, but smaller in size. There is no pneumothorax, or pleural effusion. Multifocal intralobular septal thickening is seen. Ple ural reticular pattern is noted particularly in the lung bases. Mild subpleural cystic changes seen w ithout honeycombing. There is a 6 mm noncalcified nodule in the left lower lobe (axial image 98). Briceno ited visualization of the upper abdomen demonstrates no acute abnormality. No acute osseous abnormalities are identified. IMPRESSION: 1. No evidence of acute acute pulmonary embolism 2. Mediastinal and bilateral hilar adenopathy, nonspecific. Recommend 3 month follow-up CT chest with contrast. 3. Multifocal intralobular septal thickening with subpleural reticular opacities more prominent in th e lower lobes. Differential considerations include pulmonary edema, or early UIP. 4. 6 mm noncalcified nodule, left lower lobe. Attention on follow-up exam recommended. CT DOSING PQRS STATEMENT: One or more of the following individualized dose reduction techniques were utilized for this examinat ion: 1. Automated exposure control 2. Adjustment of the mA and/or kV according to patient size 3. Use of iterative reconstruction technique Electronically signed by: Gautam Giang MD (02/08/2021 2:05 PM) [id number]
[2021-02-08 14:10] LABS: CALCIUM 8.2 mg/dL (8.5-10.1); GFR 76.5; POTASSIUM 3.9 mmol/L (3.5-5.1)
--- NOTE | 2021-02-08 14:14 | EKG ---
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
[2021-02-08 14:26] LABS: ALBUMIN 2.6 g/dL (3.4-5.0); ALBUMIN/GLOBULIN RATIO 0.6 (1.0-1.7); MAGNESIUM 2.2 mg/dL (1.8-2.4); TOTAL BILIRUBIN 0.2 mg/dL (0.2-1.0); TOTAL PROTEIN 7.2 g/dL (6.4-8.2)
[2021-02-08] MEDS ORDERED: HEPARIN for IV BOLUS 10,000 UNIT/10 ML VIAL. IV ONE (14:30)
[2021-02-08] MEDS ORDERED: NITROGLYCERIN SUBLINGUAL 0.4 MG BOTTLE OF 25. SL PRN (14:30)
[2021-02-08] MEDS ORDERED: HEPARIN 25,000UTS/250ML PREMIX 250 ML IV PRN (14:30)
[2021-02-08] MEDS ORDERED: HEPARIN for IV BOLUS 10,000 UNIT/10 ML VIAL. ONE (14:34)
[2021-02-08 16:13] VITALS: BP 153/82
== END 2021-02-08 17:30 | disposition short-term general hospital (02) ==
LOC: ER 13:05
DX: I21.4 Non-ST elevation (NSTEMI) myocardial infarction (principal); M19.90 Unspecified osteoarthritis, unspecified site; E11.9 Type 2 diabetes mellitus without complications; E78.00 Pure hypercholesterolemia, unspecified; F17.210 Nicotine dependence, cigarettes, uncomplicated; G89.29 Other chronic pain; Z20.822 Contact with and (suspected) exposure to COVID-19
CPT/HCPCS: 36415; 71275; 80053; 82553; 83690; 83735; 83880; 84484; 85025; 85610; 85730; 87426; 93005; 96361; 96365; 96366; 96375; 96376; 99291; C9803; J1644; J3010; J7030; Q9967; U0003